=== PATIENT | female | born 1945 ===

== ENCOUNTER 2018-01-18 18:23 | Emergency (ER) | payer OTHER ==
[~2018-01-18 18:23] MED LIST: ATIVAN1 M1 PO; CALCIUM600 M2 PO; COUMADIN2 M1 PO; IRON325 M3 PO; PERCOCET 5-3251 EACH PO
[2018-01-18 19:03] LABS: ABSOLUTE BASOPHIL COUNT 0 /CUMM (0.0-0.2); ABSOLUTE EOSINOPHIL COUNT 0 /CUMM (0.0-0.7); ABSOLUTE GRANULOCYTE CT 15.2 /CUMM (1.4-6.5); ABSOLUTE LYMPH COUNT 0.5 /CUMM (1.2-3.4); ABSOLUTE MONOCYTE COUNT 0.7 /CUMM (0.10-0.60); BASOPHIL % 0 % (0.0-2.0); EOSINOPHIL % 0 % (0-5); HEMATOCRIT 43.3 % (37-47); MEAN CORPUSCULAR HGB 30.3 PG (27.0-31.0); MEAN CORPUSCULAR HGB CONC 33.2 G/DL (33.0-37.0); MEAN CORPUSCULAR VOLUME 91.1 FL (81.0-99.0); MEAN PLATELET VOLUME 8.8 FL (7.4-10.4); PLATELET COUNT 238 /CUMM (130-400); RBC DISTRIBUTION WIDTH 15.9 % (11.5-14.5); RED BLOOD CELL CT 4.75 /CUMM (4.20-5.40); WHITE BLOOD CELL COUNT 16.4 /CUMM (4.8-10.8)
--- NOTE | 2018-01-18 19:05 | ED GI/GU/ABDOMINAL COMPLAINT ---
History of Present Illness General Chief Complaint: Abdominal Pain/Flank Pain Stated Complaint: PT IS HAVING ABDOMINAL PAIN Source: patient, family Exam Limitations: no limitations Vital Signs & Intake/Output Vital Signs & Intake/Output Vital Signs Date Time Temp Pulse Resp B/P B/P Pulse O2 O2 Flow FiO2 Mean Ox Delivery Rate 01/19 2036 98.9 65 18 150/72 95 Room Air 01/18 1835 96.2 67 15 121/78 97 Room Air Room Air Allergies Coded Allergies: aspirin (STOMACH SICK 01/18/18) Reconcile Medications Calcium Carbonate (Calcium) (Unknown Strength) TABLET (Unknown Dose) PO DAILY SUPPLEMENT (Reported) Ferrous Sulfate (IRON) (Unknown Strength) TABLET (Unknown Dose) PO DAILY SUPPLEMENT (Reported) LORazepam (Ativan) 1 MG TABLET 1 TAB PO QPM SLEEP (Reported) Oxycodone HCl/Acetaminophen (Percocet 5-325 MG Tablet) 5 MG-325 MG TABLET 1 TAB PO Q6P PRN PAIN Oxycodone HCl/Acetaminophen (Percocet 5-325 MG Tablet) 5 MG-325 MG TABLET 1-2 TAB PO Q4P PRN PAIN Warfarin Sodium (Coumadin) 2 MG TABLET 1 TAB PO DAILY ANTICOAGULATION INR GOAL 2-3 Triage Note: PT TO ED WITH DAUGHTER FOR A COUPLE OF DAYS OF LOWER ABD PAIN WITH YELLOW STOOLS, -NAUSEA/VOMITING. HEADACHE. Triage Nurses Notes Reviewed? yes ? N Is pt currently ? No HPI: Patient presents complaining of right lower quadrant abdominal pain that she's had for the past few days. She's also had loose stools that are yellowish to orange in color. The pain is constant. There are no aggravating or mitigating factors. There is no radiation. She rates the pain as moderate on the pain scale. Patient has had a history of ruptured appendicitis with follow-up surgery for an abscess in the postop period. Patient denies any fevers or chills. Past History Travel History Traveled to [place] past 21 day No Medical History Any Pertinent Medical History? see below for history Neurological: NONE EENT: NONE Cardiovascular: NONE Respiratory: NONE Gastrointestinal: NONE Hepatic: NONE Renal: NONE Musculoskeletal: R LEG SURGERY Psychiatric: anxiety Endocrine: NONE Blood Disorders: NONE Cancer(s): NONE GRINDER OPERATOR/Reproductive: FIBROID REMOVAL X2 History of MRSA: No History of VRE: No History of CDIFF: No Pneumonia Vaccine: 06/15/16 Influenza Vaccine: 06/15/16 Surgical History Surgical History: appendectomy, FIBROID REMOVAL X2 R LEG SURGERY W/HARDWARE REMOVAL Psychosocial History Who do you live with Spouse Services at Home None What is your primary language Other Tobacco Use: Current Daily Use Daily Tobacco Use Amount/Type: => 5 Cigarettes daily ETOH Use: denies use Illicit Drug Use: denies illicit drug use Family History Hx Contributory? No Review of Systems Review of Systems Constitutional: Reports: no symptoms. EENTM: Reports: no symptoms. Respiratory: Reports: no symptoms. Cardiovascular: Reports: no symptoms. GI: Reports: see HPI, abdominal pain. Genitourinary: Reports: no symptoms. Musculoskeletal: Reports: no symptoms. Skin: Reports: no symptoms. Neurological/Psychological: Reports: no symptoms. Hematologic/Endocrine: Reports: no symptoms. Immunologic/Allergic: Reports: no symptoms. All Other Systems: Reviewed and Negative Physical Exam Physical Exam General Appearance: well developed/nourished, alert, awake, mild distress Head: atraumatic, normal appearance Eyes: Bilateral: PERRL, EOMI. Ears, Nose, Throat, Mouth: hearing grossly normal, moist mucous membrane Neck: normal inspection, supple, full range of motion Respiratory: normal breath sounds, chest non-tender, no respiratory distress, lungs clear Cardiovascular: regular rate/rhythm, normal peripheral pulses Gastrointestinal: normal bowel sounds, soft, no organomegaly, tenderness (RLQ), NO GUARDING OR REBOUND Back: normal inspection, normal range of motion Extremities: normal range of motion Neurologic/Psych: no motor/sensory deficits, awake, alert, oriented x 3, normal gait, normal mood/affect Skin: intact, normal color, warm/dry Core Measures ACS in differential dx? No Sepsis Present: No Sepsis Focused Exam Completed? No Progress Differential Diagnosis: colon cancer, diverticulitis, pancreatitis, SBO Plan of Care: Orders Procedure Date/time Status URINALYSIS 01/18 183 Complete LIPASE 01/18 1833 Complete COMPREHENSIVE METABOLIC PANEL 01/18 183 Complete CBC WITHOUT DIFFERENTIAL 01/18 183 Complete AMYLASE 01/18 183 Complete Laboratory Tests 01/18/18 1938: Urine Color YEL, Urine Clarity CLEAR, Urine pH 6.0, Ur Specific [place] <= 1.005 , Urine Protein NEG, Urine Ketones NEG, Urine Nitrite NEG, Urine Bilirubin NEG, Urine Urobilinogen 0.2, Ur Leukocyte Esterase NEG, Ur Microscopic SEDIMENT EXAMINED, Urine RBC FEW H, Urine WBC RARE, Ur Epithelial Cells RARE, Urine Bacteria RARE H, Urine Mucus RARE, Urine Hemoglobin TRACE-INTACT, Urine Glucose NEG 01/18/18 1854: Anion Gap 12, Estimated GFR > 60, BUN/Creatinine Ratio 36.3 H, Glucose 149 H, Calcium 9.5, Total Bilirubin 0.7, AST 24, ALT 28, Alkaline Phosphatase 69, Total Protein 6.6, Albumin 3.9, Globulin 2.7, Albumin/Globulin Ratio 1.4, Amylase 86, Lipase 98, CBC w Diff MAN DIFF ORDERED, RBC 4.75, MCV 91.1, MCH 30.3, MCHC 33.2, RDW 15.9 H, MPV 8.8, Gran % 92.7 H, Lymphocytes % 3.2 L, Monocytes % 4.1, Eosinophils % 0, Basophils % 0, Absolute Granulocytes 15.2 H, Segmented Neutrophils 84 H, Band Neutrophils 3, Absolute Lymphocytes 0.5 L, Lymphocytes 8 L, Monocytes 5, Absolute Monocytes 0.7 H, Absolute Eosinophils 0, Absolute Basophils 0, Platelet Estimate ADEQUATE, Normocytic RBCs VERIFIED, Normochromic RBCs VERIFIED Diagnostic Imaging: Viewed by Me: CT Scan. Discussed w/RAD: CT Scan. Radiology Impression: PATIENT: CAITLIN STEPHENS PRESENT AGE: 72 PATIENT ACCOUNT NO: [id number] : 47 LOCATION: [facility] ORDERING PHYSICIAN: Kaya ROMERO SERVICE DATE: 01/18/18 EXAM TYPE: CAT - CT ABD & PELVIS W IV CONTRAST EXAMINATION: CT ABDOMEN AND PELVIS WITHOUT CONTRAST CLINICAL INFORMATION: Lower abdominal pain. History of abdominal abscess. COMPARISON: None TECHNIQUE: Axial images obtained through the abdomen and pelvis. Coronal and sagittal reformatted images performed at CT scanner. No oral or intravenous contrast. DLP: 261.72 mGy-cm FINDINGS: LUNG BASES: The visualized lung bases are unremarkable. LIVER, GALLBLADDER, AND BILIARY TREE: The liver is normal in size, shape, and attenuation. No focal hepatic lesion or biliary ductal dilatation is present. The gallbladder is unremarkable with no evidence of radiopaque gallstones, gallbladder wall thickening, or obvious pericholecystic inflammatory changes. PANCREAS: Unremarkable. SPLEEN: Unremarkable. ADRENAL GLANDS: Unremarkable. KIDNEYS AND URETERS: The kidneys are normal in size, shape, and attenuation. No hydronephrosis, hydroureter, or calculi seen. No perinephric stranding. BLADDER: Unremarkable. ABDOMINAL WALL/ GASTROINTESTINAL TRACT: There is a spigelian hernia in the right side of the abdomen. This contains nonobstructive small bowel loops. There is also a midline ventral wall hernia containing nonobstructive small bowel loops. There is diverticulosis of the colon. No diverticulitis. No bowel wall thickening or edema. The appendix is not seen. There is no inflammation the mesentery. The small bowel loops are normal. There is a diverticulum at the third portion of the duodenum with air-fluid level. The stomach is unremarkable. LYMPH NODES: Normal. VASCULAR: Unremarkable. PELVIC VISCERA: Unremarkable. OSSEOUS STRUCTURES : There is a dextroscoliosis of the midthoracic spine with multilevel disc height narrowing vacuum disc phenomena endplate spurring and facet joint arthrosis. Status post fusion with transpedicular screws L4-L5. IMPRESSION: 1. No acute abnormality abdomen or pelvis. DICTATED BY: Akira Morales MD DATE/TIME DICTATED:01/18/182053 ACCESS DATABASE DEVELOPER:KAYLEE DATE/TIME TRANSCRIBED:2053 CONFIDENTIAL, DO NOT COPY WITHOUT APPROPRIATE AUTHORIZATION. < Electronically signed in Other Vendor System> SIGNED BY: Akira Morales MD [id number] Initial ED EKG: none Departure Departure Disposition: HOME OR SELF CARE Condition: Stable Clinical Impression Primary Impression: RLQ abdominal pain Referrals: Cynthia GEE,Abbie Landeros Additional Instructions: return if symptoms worsen or for any concerns Departure Forms: Customer Survey General Discharge Information Prescriptions: Current Visit Scripts Oxycodone HCl/Acetaminophen (Percocet 5-325 MG Tablet) 1 TAB PO Q6P PRN PAIN #12 TAB
[2018-01-18 19:11] LABS: GRANULOCYTE % 92.7 % (42.2-75.2)
--- NOTE | 2018-01-18 21:05 | CT SCAN REPORT ---
EXAMINATION: CT ABDOMEN AND PELVIS WITHOUT CONTRAST CLINICAL INFORMATION: Lower abdominal pain. History of abdominal abscess. COMPARISON: None TECHNIQUE: Axial images obtained through the abdomen and pelvis. Coronal and sagittal reformatted images performed at CT scanner. No oral or intravenous contrast. DLP: 261.72 mGy-cm FINDINGS: LUNG BASES: The visualized lung bases are unremarkable. LIVER, GALLBLADDER, AND BILIARY TREE: The liver is normal in size, shape, and attenuation. No focal hepatic lesion or biliary ductal dilatation is present. The gallbladder is unremarkable with no evidence of radiopaque gallstones, gallbladder wall thickening, or obvious pericholecystic inflammatory changes. PANCREAS: Unremarkable. SPLEEN: Unremarkable. ADRENAL GLANDS: Unremarkable. KIDNEYS AND URETERS: The kidneys are normal in size, shape, and attenuation. No hydronephrosis, hydroureter, or calculi seen. No perinephric stranding. BLADDER: Unremarkable. ABDOMINAL WALL/GASTROINTESTINAL TRACT: There is a spigelian hernia in the right side of the abdomen. This contains nonobstructive small bowel loops. There is also a midline ventral wall hernia containing nonobstructive small bowel loops. There is diverticulosis of the colon. No diverticulitis. No bowel wall thickening or edema. The appendix is not seen. There is no inflammation the mesentery. The small bowel loops are normal. There is a diverticulum at the third portion of the duodenum with air-fluid level. The stomach is unremarkable. LYMPH NODES: Normal. VASCULAR: Unremarkable. PELVIC VISCERA: Unremarkable. OSSEOUS STRUCTURES: There is a dextroscoliosis of the midthoracic spine with multilevel disc height narrowing vacuum disc phenomena endplate spurring and facet joint arthrosis. Status post fusion with transpedicular screws L4-L5. IMPRESSION: 1. No acute abnormality abdomen or pelvis.
[2018-01-18] MEDS ORDERED: PERCOCET 5-3251 EACH PO (21:20)
[2018-01-18 21:32] VITALS: BP 118/56
== END 2018-01-18 22:07 ==
LOC: ERH 18:23
PROVIDERS: Physician Assistant
DX: R10.31 Right lower quadrant pain (principal)
CPT/HCPCS: 74177; 81001; 96374; J1885